=== PATIENT | male | born 1980 | race Caucasian/White ===

== ENCOUNTER 2024-07-09 12:29 | Emergency (ER) | payer BC ==
[~2024-07-09] VITALS: Ht 175.3 cm; Wt 83.9 kg
[2024-07-09] MEDS ORDERED: ONDANSETRON HCl 4 MG/2 ML SDV IV ONE (12:35)
[2024-07-09] MEDS ORDERED: SODIUM CHLORIDE 0.9% 1,000 ML IV ONE (12:35)
[2024-07-09] MEDS ORDERED: KETOROLAC TROMETHAMINE 30 MG/ML SDV IV ONE (12:35)
[2024-07-09] MEDS ORDERED: MORPHINE SULFATE 4 MG/ML VIAL IV STA (12:49)
[2024-07-09 12:58] LABS: BASO% 0.1 % (0-3); EOS% 0.2 % (0-8); HEMATOCRIT 46.6 % (39.0-50.0); HEMOGLOBIN 14.9 g/dl (14.0-18.0); IMMATURE GRANULOCYTES 0.1 % (0.0-5.0); LYMPH% 13.1 % (15-41); MEAN CELL VOLUME 87.6 fL CALC (80.0-100.0); MONO% 3.9 % (2-13); NEUT# 11.36 thou/uL (1.82-7.42); NEUT% 82.6 % (42-76); RED BLOOD COUNT 5.32 mill/uL (4.70-6.10); RED CELL DISTRI WIDTH 13.2 % (11.5-15.5)
[2024-07-09 13:09] LABS: ALBUMIN 5.1 g/dL (3.2-5.0); BILIRUBIN, TOTAL 1.1 mg/dL (0.2-1.3); CREATININE 0.9 mg/dL (0.7-1.3); TOTAL PROTEIN 8.8 g/dL (6.3-8.2)
[2024-07-09] MEDS ORDERED: HYDROmorphone HCL 2 MG/AMP IV STA (13:31)
[2024-07-09] MEDS ORDERED: TAMSULOSIN HCL 0.4 MG CAP PO ONE (14:25)
[2024-07-09] MEDS ORDERED: TORADOL PO (14:35)
[2024-07-09] MEDS ORDERED: PERCOCET 5/325M1 TAB PO (14:35)
[2024-07-09] MEDS ORDERED: TAMSULOSIN0.4 MG PO (14:35)
[2024-07-09 14:55] VITALS: BP 136/86
[2024-07-09 15:04] LABS: URINE BILIRUBIN - DIPSTICK Negative (NEGATIVE); URINE BLOOD DIPSTICK Large (NEGATIVE); URINE COLOR Yellow; URINE GLUCOSE - DIPSTICK Negative (NEGATIVE); URINE KETONE 15 mg/dL (NEGATIVE); URINE LEUK ESTERASE Negative (NEGATIVE); URINE NITRITE - DIPSTICK Negative (Negative); URINE PROTEIN - DIPSTICK 30 mg/dL (NEG-TRACE); URINE UROBILINOGEN - DIPSTICK 0.2 E.U./dL (0.2)
[2024-07-09 15:13] LABS: URINE RBC 50-100 RBC/hpf (0-5); URINE WBC 0-2 WBC/hpf (0-5)
== END 2024-07-09 14:56 | disposition home or self-care (01) | DRG 694 ==
LOC: ED 12:29
PROVIDERS: Nurse Practitioner
DX: N20.1 Calculus of ureter (principal); Z87.442 Personal history of urinary calculi
CPT/HCPCS: J1171; J2405